=== PATIENT | female | born 1995 | race Caucasian/White ===

== ENCOUNTER 2018-04-30 14:30 | Emergency (ER) | payer OTHER ==
[2018-04-30] MEDS ORDERED: ALBUTEROL NEB 2.5 MG/3 ML INH STA ×2 (15:22→15:46)
[2018-04-30] MEDS ORDERED: BENZONATATE 100 MG CAPSULE PO STA (15:22)
[2018-04-30] MEDS ORDERED: DEXAMETHASONE 10 MG/ML VIAL PO STA (15:22)
--- NOTE | 2018-04-30 15:43 | ED Physician Documentation ---
PD HPI URI - Stated complaint Stated Complaint: SOA - Chief complaint Chief Complaint: Resp - History obtained from History obtained from: Patient - History of Present Illness Timing - onset: How many weeks ago (1) Timing duration: Weeks (1) Timing details: Gradual onset, Still present Associated symptoms: Fever, Nasal congestion, Dry cough, Dyspnea. No: Sore throat, NVD Contributing factors: No: Sick contact, Travel Similar symptoms before: Has not had sx before Recently seen: Not recently seen Review of Systems Constitutional: reports: Fever, Chills, Myalgias Nose: reports: Rhinorrhea / runny nose, Congestion Throat: denies: Sore throat Cardiac: denies: Chest pain / pressure Respiratory: reports: Dyspnea, Cough, Wheezing GI: denies: Nausea, Vomiting, Diarrhea PD PAST MEDICAL HISTORY - Past Medical History Past Medical History: Yes Psych: Depression - Past Surgical History Past Surgical History: Yes HEENT: Tonsil/Adenoidectomy - Present Medications Home Medications: Ambulatory Orders Medication Instructions Recorded Confirmed Dextroamphetamine/Amphetamine 0.5 tab PO DAILY 09/03/14 04/30/18 [Adderall 10 mg Tablet] Benzonatate [Tessalon Perle] 100 - 200 mg PO TID PRN #30 capsule 04/30/18 Dexamethasone [Decadron] 4 mg PO DAILY #5 tablet 04/30/18 RX: Albuterol Sulf [Ventolin Hfa 1 - 2 puffs INH Q4HR PRN #1 inhaler 04/30/18 Inhaler] buPROPion [Wellbutrin Xl] 150 mg PO DAILY 04/30/18 04/30/18 lamoTRIgine [Lamictal] 200 mg PO DAILY 04/30/18 04/30/18 - Allergies Allergies/Adverse Reactions: Allergies Allergy/AdvReac Type Severity Reaction Status Date / Time No Known Drug Allergies Allergy Verified 04/30/18 14:38 - Social History Does the pt smoke?: No Smoking Status: Never smoker Does the pt drink ETOH?: No Does the pt have substance abuse?: Yes - Immunizations Immunizations are current?: Yes - POLST Patient has POLST: No PD ED PE NORMAL - Vitals Vital signs reviewed: Yes - General General: Alert and oriented X 3, Well developed/nourished - HEENT HEENT: Ears normal, Pharynx benign - Neck Neck: Supple, no meningeal sign, No adenopathy - Cardiac Cardiac: RRR, No murmur - Respiratory Respiratory: No: Clear bilaterally (no coarse sounds but does have exp wheezing diffuse. ) - Abdomen Abdomen: Soft, Non tender - Back Back: No CVA TTP - Derm Derm: Normal color, Warm and dry - Neuro Neuro: Alert and oriented X 3, No motor deficit, Normal speech Results - Vitals Vitals: Vital Signs - 24 hr 04/30/18 04/30/18 04/30/18 14:36 15:38 15:53 Temperature 35.9 C L Heart Rate 79 80 70 Respiratory 20 18 18 Rate Blood Pressure 140/100 H O2 Saturation 95 04/30/18 16:03 Temperature Heart Rate 80 Respiratory 16 Rate Blood Pressure 140/94 H O2 Saturation 95 Oxygen O2 Source Room air PD MEDICAL DECISION MAKING - ED course Complexity details: considered differential, d/w patient Departure - Departure Disposition: 01 Home, Self Care Clinical Impression: Wheezing Upper respiratory infection Qualifiers: URI type: unspecified URI Qualified Code(s): J06.9 - Acute upper respiratory infection, unspecified Condition: Stable Record reviewed to determine appropriate education?: Yes Instructions: ED URI Viral W Wheezing Prescriptions: RX: Albuterol Sulf [Ventolin Hfa Inhaler] 1 - 2 puffs INH Q4HR PRN #1 inhaler PRN Reason: Shortness Of Air/Wheezing Benzonatate [Tessalon Perle] 100 - 200 mg PO TID PRN #30 capsule PRN Reason: Cough Dexamethasone [Decadron] 4 mg PO DAILY #5 tablet Comments: Use albuterol inhaler 2 puffs 4 times a day for the next 7-10 days and extra times as needed. Decadron steroid for inflammation of the airways to reduce the wheezing and cough. Tessalon as needed for cough. Drink lots of fluids. Recheck if not improving over the next several days. Discharge Date/Time: 04/30/18 16:04
[2018-04-30 16:04] VITALS: BP 140/94
== END 2018-04-30 16:04 | disposition home or self-care (01) ==
LOC: ED 14:30
DX: R06.2 Wheezing (principal); J06.9 Acute upper respiratory infection, unspecified
CPT/HCPCS: 94640; 99283; A9270

== ENCOUNTER 2018-09-07 15:25 | Emergency (ER) | payer OTHER ==
[2018-09-07 15:29] VITALS: BP 133/97
--- NOTE | 2018-09-07 15:51 | ED Physician Documentation ---
PD HPI DYSPNEA - Stated complaint Stated Complaint: SOA - Chief complaint Chief Complaint: Resp - History obtained from History obtained from: Patient, Family - History of Present Illness Timing - onset: How many months ago (5) Timing - onset during: Exertion Timing - duration: Months Timing - details: Gradual onset, Constant, Other (worsening) Severity Comments: moderate Inciting event(s): Out of meds (out of inhaler) Improved by: Inhaler/neb, Rest Worsened by: Exertion Associated symptoms: Cough, Wheezing. No: Fever, Hemoptysis, Chest pain / discomfort, Palpitations, Diaphoresis, Bilateral edema, Unilateral edema, Anxiety Similar symptoms before: Diagnosis (reactive airway disease) Recently seen: Emergency Dept (several months ago and given an inhaler) Review of Systems Ten Systems: 10 systems reviewed and negative Constitutional: denies: Fever, Chills Throat: reports: Reviewed and negative Cardiac: denies: Chest pain / pressure, Palpitations Respiratory: reports: Dyspnea, Cough, Wheezing. denies: Hemoptysis GI: denies: Nausea, Vomiting Skin: reports: Reviewed and negative Musculoskeletal: reports: Reviewed and negative Neurologic: reports: Reviewed and negative PD PAST MEDICAL HISTORY - Past Medical History Past Medical History: No Psych: Depression - Past Surgical History Past Surgical History: Yes HEENT: Tonsil/Adenoidectomy - Present Medications Home Medications: Ambulatory Orders Medication Instructions Recorded Confirmed Dextroamphetamine/Amphetamine 0.5 tab PO DAILY 09/03/14 04/30/18 [Adderall 10 mg Tablet] buPROPion [Wellbutrin Xl] 150 mg PO DAILY 04/30/18 04/30/18 lamoTRIgine [Lamictal] 200 mg PO DAILY 04/30/18 04/30/18 RX: Albuterol Sulf [Ventolin Hfa 1 - 2 puffs INH Q4HR PRN #1 inhaler 09/07/18 Inhaler] RX: Dexamethasone 12 mg PO ONCE PRN #2 tablet 09/07/18 - Allergies Allergies/Adverse Reactions: Allergies Allergy/AdvReac Type Severity Reaction Status Date / Time No Known Drug Allergies Allergy Verified 09/07/18 15:30 - Social History Does the pt smoke?: No Smoking Status: Never smoker Does the pt drink ETOH?: No Does the pt have substance abuse?: Yes - Immunizations Immunizations are current?: Yes - POLST Patient has POLST: No PD ED PE NORMAL - Vitals Vital signs reviewed: Yes - General General: Alert and oriented X 3, No acute distress, Well developed/nourished, Other (speaking in full sentences, ambulatory) - HEENT HEENT: Atraumatic, Pharynx benign - Neck Neck: Supple, no meningeal sign, No JVD - Cardiac Cardiac: RRR, No murmur, No gallop, No rub, Strong equal pulses - Respiratory Respiratory: No respiratory distress, Other (diffuse inspiratory and expiratory wheezing in all lung [place]) - Abdomen Abdomen: Soft, Non tender, Non distended - Female Female : Deferred - Rectal Rectal: Deferred - Derm Derm: Normal color, Warm and dry, No rash - Extremities Extremities: No edema - Neuro Neuro: Alert and oriented X 3 Eye Opening: Spontaneous Motor: Obeys Commands Verbal: Oriented GCS Score: 15 - Psych Psych: Normal mood, Normal affect Results - Vitals Vitals: Oxygen O2 Source Room air PD MEDICAL DECISION MAKING - ED course Complexity details: considered differential ED course: ddx - asthma, copd, bronchitis, pneumonia, uri, PE Pt with hx of possible asthma with worsening symptoms gradually getting worse for 5 months. Feels sob at work, constantly wheezing. Ran out of inhaler.Wheezing here but normal O2 and in no distress, will give trial of neb, steroids here and reassess. Some improvement with nebs. Pt still stable for outpt management. Will continue nebs, steroids and pt to reassess. Improved with nebs, steroids, given additional round of nebs and pt to continue prn albuterol and course of steroids as outpt. Departure - Departure Disposition: 01 Home, Self Care Clinical Impression: Asthma Qualifiers: Asthma severity: moderate Asthma persistence: unspecified Asthma complication type: unspecified Qualified Code(s): J45.909 - Unspecified asthma, uncomplicated Condition: Stable Record reviewed to determine appropriate education?: No Instructions: Asthma Dc Follow-Up: Jodi Mistry PA [Primary Care Provider] - Prescriptions: RX: Albuterol Sulf [Ventolin Hfa Inhaler] 1 - 2 puffs INH Q4HR PRN #1 inhaler PRN Reason: Shortness Of Air/Wheezing RX: Dexamethasone 12 mg PO ONCE PRN #2 tablet PRN Reason: Wheezing Comments: Use the inhaler every 2-4 hours as needed. Take the second dose of dexamtehasone in 2-3 days if symptoms persist. Follow up with you regular doctor to recheck your symptoms and to arrange pulmonary function testing. Return to the ED if difficulting talking or worsening sob. Discharge Date/Time: 09/07/18 17:52
[2018-09-07] MEDS ORDERED: CHERRY SYRUP 10 ML UDC PO ONE (15:57)
[2018-09-07] MEDS ORDERED: IPRATROPIUM/ALBUTEROL 3 ML NEB INH STA ×2 (15:57→16:55)
[2018-09-07] MEDS ORDERED: DEXAMETHASONE 10 MG/ML VIAL PO STA (15:57)
[2018-09-07] MEDS ORDERED: ALBUTEROL NEB 2.5 MG/3 ML INH ONE (17:14)
[2018-09-07] MEDS ORDERED: ALBUTEROL NEB 2.5 MG/3 ML INH STA ×2 (17:17→17:19)
== END 2018-09-07 17:52 | disposition home or self-care (01) ==
LOC: ED 15:25
DX: J45.909 Unspecified asthma, uncomplicated (principal); F32.9 Major depressive disorder, single episode, unspecified; Z79.51 Long term (current) use of inhaled steroids
CPT/HCPCS: 94640; 94664; 99283

== ENCOUNTER 2018-10-11 13:20 | Outpatient (CLI) | payer OTHER ==
[~2018-10-11 13:20] MED LIST: ALBUTEROL NEB 2.5 MG/3 ML INH SCH
== END 2018-10-11 13:21 | disposition home or self-care (01) ==
LOC: RT 13:20
PROVIDERS: ATTEND Family Medicine
DX: J45.909 Unspecified asthma, uncomplicated (principal)
CPT/HCPCS: 94060

== ENCOUNTER 2019-11-14 12:22 | Emergency (ER) | payer OTHER ==
--- NOTE | 2019-11-14 12:32 | ED Physician Documentation ---
PD HPI NVD - Stated complaint Stated Complaint: DIZZY/NAUSEA - Chief complaint Chief Complaint: Abd Pain - History obtained from History obtained from: Patient - History of Present Illness Timing - onset: How many days ago (several) Timing - duration: Days (She has several days of feeling lightheaded associated with nausea and less appetite. No vertigo per se. She has still been urinating well and feels hydrated. She has started a keto diet a couple weeks ago. No change in medicines) Timing - details: Abrupt onset Associated symptoms: Dizzy (lightheaded, and denies any vertigo/positional component.), Loss of appetite. No: Fever, Abdominal pain, Chest pain, Near syncope / syncope Improved by: Other (resting) Worsened by: Eating. No: Position (not worsened by head movement per se, but does feel more lightheaded with sitting up.) Similar symptoms before: No diagnosis Recently seen: Not recently seen Review of Systems Constitutional: denies: Fever, Chills Nose: denies: Rhinorrhea / runny nose, Congestion, Sinus pressure / pain Throat: denies: Sore throat Respiratory: denies: Cough GI: reports: Nausea. denies: Abdominal Pain, Vomiting, Diarrhea : denies: Missed period Neurologic: denies: Focal weakness, Numbness, Syncope, Altered mental status, Headache, Head injury PD PAST MEDICAL HISTORY - Past Medical History Cardiovascular: None Respiratory: None Neuro: None Endocrine/Autoimmune: None Psych: Depression - Past Surgical History Past Surgical History: Yes HEENT: Tonsil/Adenoidectomy - Present Medications Home Medications: Ambulatory Orders Medication Instructions Recorded Confirmed Dextroamphetamine/Amphetamine 0.5 tab PO DAILY 09/03/14 04/30/18 [Adderall 10 mg Tablet] buPROPion [Wellbutrin Xl] 150 mg PO DAILY 04/30/18 04/30/18 lamoTRIgine [Lamictal] 200 mg PO DAILY 04/30/18 04/30/18 Albuterol Sulf [Ventolin Hfa 1 - 2 puffs INH Q4HR PRN #1 inhaler 09/07/18 Inhaler] Dexamethasone 12 mg PO ONCE PRN #2 tablet 09/07/18 Famotidine 20 mg PO DAILY #30 tablet 11/14/19 Ondansetron [Ondansetron Odt] 8 mg PO Q6H PRN #25 tab.rapdis 11/14/19 - Allergies Allergies/Adverse Reactions: Allergies Allergy/AdvReac Type Severity Reaction Status Date / Time No Known Drug Allergies Allergy Verified 11/14/19 12:26 - Social History Does the pt smoke?: No Smoking Status: Never smoker Does the pt drink ETOH?: No Does the pt have substance abuse?: Yes - Immunizations Immunizations are current?: Yes - POLST Patient has POLST: No PD ED PE NORMAL - Vitals Vital signs reviewed: Yes - General General: Alert and oriented X 3, Well developed/nourished - HEENT HEENT: PERRL, EOMI (no nystagmus), Moist mucous membranes, Pharynx benign - Neck Neck: Supple, no meningeal sign, No adenopathy - Cardiac Cardiac: RRR, No murmur - Respiratory Respiratory: Clear bilaterally - Abdomen Abdomen: Soft, Non tender - Derm Derm: Normal color, Warm and dry - Neuro Neuro: Alert and oriented X 3, 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, No motor deficit, No sensory deficit, Normal speech Eye Opening: Spontaneous Motor: Obeys Commands Verbal: Oriented GCS Score: 15 Results - Vitals Vitals: Vital Signs - 24 hr 11/14/19 11/14/19 12:26 13:12 Temperature 36.8 C 36.8 C Heart Rate 95 90 Respiratory 16 16 Rate Blood Pressure 144/89 H 141/84 H O2 Saturation 97 97 Oxygen O2 Source Room air - Labs Labs: Laboratory Tests 11/14/19 11/14/19 11/14/19 12:48 13:06 13:06 WBC 12.5 H RBC 4.86 Hgb 15.3 Hct 44.2 MCV 90.9 MCH 31.5 H MCHC 34.6 RDW 12.2 Plt Count 266 MPV 11.0 H Neut # (Auto) 9.1 H Lymph # (Auto) 1.8 [place] # (Auto) 0.7 Eos # (Auto) 0.8 H Baso # (Auto) 0.0 Absolute Nucleated RBC 0.00 Nucleated RBC % 0.0 Sodium 138 Potassium 3.8 Chloride 102 Carbon Dioxide 23 Anion Gap 13.0 BUN 10 Creatinine 1.0 Estimated GFR (MDRD) 68 L Glucose 117 H Calcium 9.4 Magnesium 1.8 Total Bilirubin 1.2 H AST 19 ALT 18 Alkaline Phosphatase 43 Total Protein 7.8 Albumin 4.5 Globulin 3.3 Albumin/Globulin Ratio 1.4 Lipase 38 TSH Urine Color YELLOW Urine Clarity CLEAR Urine pH 5.5 Ur Specific [place] 1.020 Urine Protein NEGATIVE Urine Glucose (UA) NEGATIVE Urine Ketones >=80 H Urine Occult Blood SMALL H Urine Nitrite NEGATIVE Urine Bilirubin NEGATIVE Urine Urobilinogen 0.2 (NORMAL) Ur Leukocyte Esterase NEGATIVE Urine RBC 0-5 Urine WBC 0-3 Ur Squamous Epith Cells FEW Squamous Urine Bacteria Few Ur Microscopic Review INDICATED Urine Culture Comments NOT INDICATED Urine HCG, Qual NEGATIVE 11/14/19 13:06 WBC RBC Hgb Hct MCV MCH MCHC RDW Plt Count MPV Neut # (Auto) Lymph # (Auto) [place] # (Auto) Eos # (Auto) Baso # (Auto) Absolute Nucleated RBC Nucleated RBC % Sodium Potassium Chloride Carbon Dioxide Anion Gap BUN Creatinine Estimated GFR (MDRD) Glucose Calcium Magnesium Total Bilirubin AST ALT Alkaline Phosphatase Total Protein Albumin Globulin Albumin/Globulin Ratio Lipase TSH 0.86 Urine Color Urine Clarity Urine pH Ur Specific [place] Urine Protein Urine Glucose (UA) Urine Ketones Urine Occult Blood Urine Nitrite Urine Bilirubin Urine Urobilinogen Ur Leukocyte Esterase Urine RBC Urine WBC Ur Squamous Epith Cells Urine Bacteria Ur Microscopic Review Urine Culture Comments Urine HCG, Qual PD MEDICAL DECISION MAKING - ED course Complexity details: reviewed results, considered differential, d/w patient Departure - Departure Disposition: Home, Self Care Clinical Impression: Light-headed feeling, Nausea Gastritis Qualifiers: Gastritis type: unspecified gastritis Chronicity: acute Gastritis bleeding: without bleeding Qualified Code(s): K29.00 - Acute gastritis without bleeding Condition: Stable Record reviewed to determine appropriate education?: Yes Instructions: ED Gastritis Follow-Up: Jodi Mistry PA [Primary Care Provider] - Prescriptions: Famotidine 20 mg PO DAILY #30 tablet Ondansetron [Ondansetron Odt] 8 mg PO Q6H PRN #25 tab.rapdis PRN Reason: Nausea / Vomiting Comments: Your basic blood tests including your thyroid appear normal. Urine appears normal as well. At this point I presume you have an irritation of the stomach, such as gastritis. Use famotidine acid reducing medicine daily for the next month. To that add ondansetron every 6-8 hours if needed for nausea. Stay well-hydrated. [place] food. Follow-up with your primary care if not improving well over the next several days to a week. Return if worsening. Discharge Date/Time: 11/14/19 13:52
[2019-11-14 12:59] LABS: GLUCOSE, URINE (UA) NEGATIVE (NEGATIVE); KETONES,URINE (UA) >=80 mg/dL (NEGATIVE); LEUKOCYTE ESTERASE, URINE NEGATIVE (NEGATIVE); NITRITE,URINE NEGATIVE (NEGATIVE); OCCULT BLOOD,URINE SMALL (NEGATIVE); PH,URINE 5.5 PH (5.0-7.5); PROTEIN,URINE NEGATIVE (NEGATIVE); UROBILINOGEN,URINE 0.2 (NORMAL) E.U./dL (NORMAL)
[2019-11-14 13:06] LABS: BILIRUBIN,URINE NEGATIVE (NEGATIVE); CLARITY,URINE CLEAR (CLEAR); ICTOTEST,URINE NEGATIVE
[2019-11-14 13:07] LABS: HCG UR QUAL NEGATIVE
[2019-11-14 13:10] LABS: BASOPHILS % (AUTO) 0.3 %; EOSINOPHILS # (AUTO) 0.8 10^3/uL (0.0-0.7); EOSINOPHILS % (AUTO) 6.2 %; HGB - HEMOGLOBIN 15.3 g/dL (12.0-16.0); LYMPHOCYTES # (AUTO) 1.8 10^3/uL (1.5-3.5); LYMPHOCYTES % (AUTO) 14.7 %; MEAN CORPUSCULAR HEMOGLOBIN 31.5 pg (27.0-31.0); MEAN CORPUSCULAR HGB CONC 34.6 g/dL (32.0-36.0); MEAN CORPUSCULAR VOLUME 90.9 fL (81.0-99.0); MONOCYTES # (AUTO) 0.7 10^3/uL (0.0-1.0); MONOCYTES % (AUTO) 5.5 %; NEUTROPHILS # (AUTO) 9.1 10^3/uL (1.5-6.6); NEUTROPHILS % (AUTO) 72.9 %; PLT - PLATELET COUNT 266 10^3/uL (130-450); RED BLOOD COUNT 4.86 10^6/uL (4.20-5.40); RED CELL DISTRIBUTION WIDTH 12.2 % (12.0-15.0); WHITE BLOOD COUNT 12.5 x10^3/uL (4.8-10.8)
[2019-11-14] MEDS: FAMOTIDINE 20 MG TABLET PO STA (13:11)
[2019-11-14] MEDS: ONDANSETRON ODT 4 MG TABLET TL STA (13:11)
[2019-11-14 13:13] VITALS: BP 141/84
[2019-11-14 13:17] LABS: BACTERIA,URINE Few /HPF (None Seen); RBC,URINE 0-5 /HPF (0-5); SQUAMOUS EPITHELIAL CELL,UR FEW Squamous (<= Few)
[2019-11-14 13:26] LABS: ALBUMIN 4.5 g/dL (3.2-5.5); ALBUMIN/GLOBULIN RATIO 1.4 (1.0-2.2); BILIRUBIN,TOTAL 1.2 mg/dL (0.2-1.0); CALCIUM 9.4 mg/dL (8.5-10.3); MAGNESIUM 1.8 mg/dL (1.7-2.8); TOTAL PROTEIN 7.8 g/dL (6.7-8.2)
== END 2019-11-14 13:52 | disposition home or self-care (01) ==
LOC: ED 12:22
DX: K29.00 Acute gastritis without bleeding (principal); R42 Dizziness and giddiness
CPT/HCPCS: 36415; 81001; 81025; 83690; 83735; 99283; 99284; A9270; Q0162; 80053; 81003; 84443; 85025; 87086

== ENCOUNTER 2021-01-31 17:00 | Outpatient (CLI) | payer OTHER | END 2021-01-31 23:59 | disposition home or self-care (01) | LOC: LAB.R 17:00 | PROVIDERS: ATTEND Physician Assistant Medical | DX: L02.91 Cutaneous abscess, unspecified (principal) | CPT/HCPCS: 87640 ==